=== PATIENT | male | born 1965 | race Caucasian/White ===

== ENCOUNTER 2020-07-26 06:09 | Emergency (ER) | payer MEDICARE, MEDICAID, SELFPAY ==
[2020-07-26 06:39] VITALS: BP 173/105; PULSE 74; RESP 17; TEMP 36.9; O2SAT 98; BMI 28.7
[2020-07-26 06:42] VITALS: PULSE 57
--- NOTE | 2020-07-26 06:50 | ED.NAVMDI ---
HPI - Nausea/Vomiting/Diarrhea General Chief complaint: Nausea/Vomiting/Diarrhea Stated complaint: vomiting/diarrhea Time Seen by Provider: 07/26/20 06:47 History of Present Illness HPI Narrative: This is a 55 years old male who presented to the emergency department with a chief complaint of nausea vomiting , he denies any abdominal pain denies any diarrhea denies any fever. He has history of type 2 diabetes he is off all medication. Denies hx of substance abuse as well MD elicited complaint: nausea and vomiting Onset (ago): day(s) (3) Description of vomiting: watery Associated nausea: Yes Associated abdominal pain: No Location of pain: none Severity: moderate Quality: cramping Exacerbating factors: none Relieving factors: none Related Data Previous Rx's Medication Instructions Recorded metoclopramide HCl 10 mg tablet 5 mg PO Q6H PRN 30 Days #90 tab 07/24/20 metoclopramide HCl [Reglan] 10 mg PO Q6H PRN #15 tab 07/26/20 Allergies Allergy/AdvReac Type Severity Reaction Status Date / Time metformin Allergy Unknown nausea, Verified 07/26/20 07:12 nausea and vomiting Review of Systems Cardiovascular: Cardiovascular: Denies chest pain and Denies lightheadedness Gastrointestinal: Gastrointestinal: Denies abdominal pain, Denies melena, Denies hematochezia, Reports nausea and Reports vomiting Musculoskeletal: Musculoskeletal: Reports no additional musculoskeletal complaints Psychiatric: Psychiatric: Reports no additional psychiatric complaints PMF Past Medical History Attestation statement: The following information was validated with the patient. Medical History Diabetes Social History Social History Alcohol intake: never Smoking Status: Current every day smoker Smoked in Last 30 Days: Yes Use of substances other than those prescribed or required for medical reasons: Yes Substance Use Type: Marijuana Substance Use Frequency: Chronic Longstanding Advance Directives: No Advance Directives Information Provided: No Physical Exam Vital Signs: Vital Signs: Vital Signs Temp Pulse Resp BP Pulse Ox 07/26/20 08:48 56 156/78 H 07/26/20 08:43 53 20 177/80 H 96 07/26/20 07:24 97 07/26/20 06:39 98.5 F 74 17 173/105 H 98 Body Mass Index 28.7 Const: General: cooperative, alert, awake and anxious Orientation/consciousness: oriented to person, oriented to place and oriented to time HENMT: Head: Yes normal to inspection General nose exam: Normal external nose present Face and sinus: Yes normal facial exam Mouth: Normal oral and palatal mucosa present and moist mucous membranes abnormal Eyes: General: appearance normal, both eyes and all related structures Neck: Neck: Yes normal visual inspection, Yes full ROM, Yes no lymphadenopathy and Yes no meningeal signs Chest: Chest palpation & inspection: normal inspection of the chest Resp: Effort & Inspection: normal respiratory effort Cardio: Rate: regular rate GI: Inspection: Yes normal to inspection and Yes other ( laparotomy scar) Palpation (GI): Soft to palpation Skin: General skin exam: no rashes or lesions noted Neuro: General: oriented to person, oriented to place, oriented to time and no meningeal signs MDM - Nausea/Vomiting/Diarrhea Lab Data Result diagrams: 07/26/20 07:10 07/26/20 07:10 Labs: Lab Results 07/26/20 07/26/20 Range/Units 07:10 07:10 WBC 11.9 H (4.8-10.8) X10*3/uL RBC 4.77 (4.60-5.80) X10*6/uL Hgb 13.3 L (14.0-18.0) g/dl Hct 40.3 L (42-52) % MCV 84.5 (80-98) fL MCH 27.9 (27.0-33.0) pg MCHC 33.0 (31.0-36.0) g/dl RDW 12.9 (11.0-16.0) % Plt Count 286 (160-400) X10*3/uL MPV 8.7 L (9.4-12.4) fL Immature Gran % (Auto) 0.6 H (0.0-0.4) % Neut % (Auto) 69.9 (45-73) % Lymph % (Auto) 19.0 L (20-40) % [place] % (Auto) 8.5 (2-11) % Eos % (Auto) 1.6 (0-4) % Baso % (Auto) 0.4 (0-2) % Lymph # (Auto) 2.3 (1.2-4.9) X10*3/uL [place] # (Auto) 1.0 (0.1-1.2) X10*3/uL Eos # (Auto) 0.2 (0.0-0.4) X10*3/uL Baso # (Auto) 0.1 (0.0-0.2) X10*3/uL Abs Immat Gran (auto) 0.07 H (0.00-0.03) X10*3/uL Absolute Neuts (auto) 8.3 (2.0-8.3) X10*3/uL Absolute Nucleated RBC 0.000 (0.0-0.012) X10*3/uL Nucleated RBC % (auto) 0.0 (0.0-0.2) /100WBC Sodium 137 (135-145) mmol/L Potassium 4.1 (3.3-5.1) mmol/l Chloride 103 (96-108) mmol/L Carbon Dioxide 26 (22-29) mmol/L Anion Gap 12 (12-20) BUN 25 H (9-16) mg/dL Creatinine 0.92 (0.5-1.4) mg/dL Estim Creat Clear Calc 91.6 Estimated GFR > 60 Random Glucose 157 H (60-115) mg/dL Calcium 8.8 (8.4-10.2) mg/dL Total Bilirubin 0.4 (0.0-1.0) mg/dL Direct Bilirubin 0.2 (0.0-0.5) mg/dL AST 17 (5-37) U/L ALT 18 (0-40) U/L Alkaline Phosphatase 106 (39-117) U/L Total Protein 6.7 (6.5-8.0) g/dL Albumin 4.2 (3.5-5.0) g/dL Lipase 101 H (8-78) U/L Discharge Plan Discharge Clinical Impression: Vomiting Patient Disposition: Home, Self-Care Instructions: Acute Nausea and Vomiting (ED) Prescriptions: New metoclopramide HCl [Reglan] 10 mg tablet 10 mg PO Q6H PRN (Reason: nausea and vomiting) Qty: 15 RF: 0 Referrals: Physician,Unknown [Primary Care Provider] - 2 days ( please call your primary care physician and arrange a follow-up appointment. Return to the emergency department review worse, fever, abdominal pain) Interventions: ED Discharge Assessment Last Done: 07/26/20 12:34 Discharge Date/Time: 07/26/20 12:35
--- NOTE | 2020-07-26 07:00 | CT_ITS ---
EXAMINATION: CT ABDOMEN AND PELVIS WITHOUT CONTRAST CLINICAL INFORMATION: Abdominal pain. Diverticulitis? COMPARISON: None TECHNIQUE: Multidetector volumetric imaging was performed from the superior aspect of the liver through the pubic symphysis. Sagittal and coronal reformatted images were obtained on the technologist's workstation. This CT examination was performed using dose optimization techniques as appropriate, variously including the following: *Automated exposure control *Adjustment of mA and/or kV according to patient size (this includes techniques or standardized protocols for targeted exams where dose is matched to indication/reason for exam; i.e. extremities or head) *Use of iterative reconstruction technique DLP: 595 mGy-cm FINDINGS: LUNG BASES: Incidentally noted is minimal bronchial wall thickening in the visualized bases, which have slightly mosaic attenuation. No basilar consolidation or pleural effusion. LIVER, GALLBLADDER, AND BILIARY TREE: The liver is normal in size, shape, and attenuation. No focal hepatic lesion or biliary ductal dilatation. The gallbladder contains calcified stones. No gallbladder wall thickening or pericholecystic inflammatory changes. PANCREAS: Unremarkable. SPLEEN: Unremarkable. ADRENAL GLANDS: Unremarkable. KIDNEYS AND URETERS: Kidneys are normal in size. 0.3 cm calyceal stone is present in the posterior interpolar region of the right kidney. The ureters are unremarkable. 2.5 cm cortical cyst of the lower pole of the right kidney has a simple appearance on these noncontrast images. BLADDER: The urinary bladder is underdistended. No bladder calculi. GASTROINTESTINAL TRACT: Stomach is unremarkable. No dilated bowel loops. No evidence of appendicitis. The colonic wall has normal thickness. No bowel wall edema, mesenteric fat stranding or ascites. No pneumoperitoneum. ABDOMINAL WALL: No significant findings. Small amount of fat/lipoma is noted in the right inguinal canal. LYMPH NODES: Normal. VASCULAR: Mild atherosclerosis of the abdominal aorta without aneurysm. PELVIC VISCERA: Prostate gland contains central calcifications. The gland is normal in size. No pelvic mass or free fluid. There are vas deferens calcifications -- a finding that may be observed in patients with history of diabetes. OSSEOUS STRUCTURES: Degenerative disc disease of L1-L2 and L4-L5. IMPRESSION: * No acute findings in the abdomen or pelvis. No evidence of inflammatory change or obstruction along the gastrointestinal tract. * Small, 0.3 cm stone of the right kidney. No hydronephrosis. * Cholelithiasis without evidence of cholecystitis or biliary tract obstruction.
[2020-07-26] MEDS: ondansetron HCL 4 MG/2 ML VIAL IVPUSH (07:14)
[2020-07-26] MEDS: 0.9 % Sodium Chloride 1,000 ML 999 ML IVCONT ×2 (07:14→08:39)
[2020-07-26 07:15] LABS: MANUAL DIFF FLAG NO
[2020-07-26 07:24] VITALS: O2SAT 97
[2020-07-26 07:26] LABS: Basophils Absolute Auto 0.1 X10*3/uL (0.0-0.2); Basophils Percent Auto 0.4 % (0-2); Eosinophils Absolute Auto 0.2 X10*3/uL (0.0-0.4); Eosinophils Percent Auto 1.6 % (0-4); Hematocrit 40.3 % (42-52); Hemoglobin 13.3 g/dl (14.0-18.0); Imm Gran Abs Auto 0.07 X10*3/uL (0.00-0.03); Imm Gran Pct Auto 0.6 % (0.0-0.4); Lymphocytes Absolute Auto 2.3 X10*3/uL (1.2-4.9); Mean Corpuscular Hemoglobin 27.9 pg (27.0-33.0); Mean Corpuscular Volume 84.5 fL (80-98); Mean Platelet Volume 8.7 fL (9.4-12.4); Monocytes Percent Auto 8.5 % (2-11); Neutrophils Absolute Auto 8.3 X10*3/uL (2.0-8.3); Neutrophils Percent Auto 69.9 % (45-73); Platelet Count 286 X10*3/uL (160-400); Red Blood Count 4.77 X10*6/uL (4.60-5.80); Red Cell Distribution Width 12.9 % (11.0-16.0); White Blood Count 11.9 X10*3/uL (4.8-10.8)
--- NOTE | 2020-07-26 07:26 | PC.NURSE ---
RECEIVED REPORT FROM BUBBA AMARAL. PT ALERT AND VERBAL. SKIN PALE, CLAMMY, WARM. RESPIRATIONS EVEN AND NON LABORED. REPORTS NAUSEA. DENIES ANY PAIN OR OTHER DISCOMFORT. REPORTS HE HAS HAD MULTIPLE EPISODES OF VOMITING SIMILAR TO THIS IN THE PAST, BRIEFLY RELIEVED BY HOT SHOWERS. SMOKES MARIJUANA, BUT STATES I'M TRYING TO QUIT. LAST SMOKED YESTERDAY. IV ACCESS OBTAINED. LABS SENT. NS INFUSING AND ZOFRAN GIVEN PER DEC.
[2020-07-26 07:49] LABS: Alanine Aminotransferase 18 U/L (0-40); Albumin Level 4.2 g/dL (3.5-5.0); Alkaline Phosphatase 106 U/L (39-117); Anion Gap 12 (12-20); Aspartate Amino Transferase 17 U/L (5-37); Bilirubin Direct 0.2 mg/dL (0.0-0.5); Bilirubin Total 0.4 mg/dL (0.0-1.0); Blood Urea Nitrogen 25 mg/dL (9-16); Calcium 8.8 mg/dL (8.4-10.2); Carbon Dioxide 26 mmol/L (22-29); Chloride 103 mmol/L (96-108); Creatinine Clr Calc Pharmacy 91.6; Estimated Glomerular Filt Rate > 60; Glucose Random 157 mg/dL (60-115); Potassium 4.1 mmol/l (3.3-5.1); Sodium 137 mmol/L (135-145); Total Protein 6.7 g/dL (6.5-8.0)
[2020-07-26 08:04] LABS: Lipase 101 U/L (8-78)
--- NOTE | 2020-07-26 08:15 | XR_ITS ---
EXAMINATION: XR CHEST CLINICAL INFORMATION: Cough. COMPARISON: CXR from 11/25/2017 TECHNIQUE: Frontal view of the chest was obtained. FINDINGS: Trachea is midline in position. Lungs are well expanded and clear. No evidence of consolidation or pleural effusion. Cardiomediastinal silhouette has normal size and contour. The visualized bones and upper abdomen are unremarkable. IMPRESSION: No evidence of pneumonia. No acute cardiopulmonary findings compared to the prior chest radiograph from 11/25/2017.
[2020-07-26] MEDS: Metoclopramide HCl 10 MG/2 ML VIAL IVPUSH (08:31)
[2020-07-26 08:43] VITALS: BP 177/80; PULSE 53; RESP 20; O2SAT 96
--- NOTE | 2020-07-26 08:45 | PC.NURSE ---
PT REMAINS NAUSEOUS AFTER ZOFRAN. VOMITED APPROX 100 ML CLEAR EMESIS. MEDICATED WITH ATIVAN AND REGLAN PER DEC. PT ALSO NOW REPORTS FEELING SOB. SPO2 96% ON RA. RESPIRATIONS NON LABORED, BUT COURSE I/E WHEEZES PRESENT BILATERALLY THROUGHOUT. RECEIVING ALBUTEROL UPDRAFT. AWAITING RESULTS OF CHEST XRAY.
[2020-07-26 08:48] VITALS: BP 156/78; PULSE 56
[2020-07-26] MEDS: LORazepam 2 MG/ML VIAL 0.5 MG IVPUSH (09:00)
--- NOTE | 2020-07-26 11:36 | PC.NURSE ---
pt denies nausea and sob at this time. sitting up, drinking gingerale; tolerating well.
== END 2020-07-26 12:35 | disposition home or self-care (01) ==
PROVIDERS: Emergency Provider Emergency Medicine
DX: R11.2 Nausea with vomiting, unspecified (principal); E11.9 Type 2 diabetes mellitus without complications; F17.200 Nicotine dependence, unspecified, uncomplicated; F12.90 Cannabis use, unspecified, uncomplicated
CPT/HCPCS: 36415; 71045; 74176; 80048; 80076; 83690; 85025; 96361; 96374; 96375; 99285; J2060; J2405; J2765

== ENCOUNTER 2020-07-29 08:24 | Emergency (ER) | payer MEDICARE, MEDICAID, SELFPAY ==
[2020-07-29 08:57] VITALS: BP 168/80; PULSE 55; RESP 16; TEMP 37; O2SAT 97; BMI 28.8
--- NOTE | 2020-07-29 09:01 | ED.NAVMDI ---
HPI - Nausea/Vomiting/Diarrhea General Chief complaint: Nausea/Vomiting/Diarrhea Stated complaint: NAUSEA, VOMITING Time Seen by Provider: 07/29/20 09:01 Source: patient Mode of arrival: ambulatory Limitations: no limitations History of Present Illness MD elicited complaint: nausea, vomiting and diarrhea Onset (ago): day(s) (7) Description of vomiting: food contents Description of diarrhea: semi-solid Associated nausea: Yes Associated abdominal pain: No Location of pain: none Exacerbating factors: eating Relieving factors: none Context: other (DENIES) Associated symptoms: myalgias, cough, fever/chills, loss of appetite, malaise and nausea/vomiting Related Data Previous Rx's Medication Instructions Recorded metoclopramide HCl 10 mg tablet 5 mg PO Q6H PRN 30 Days #90 tab 07/24/20 metoclopramide HCl [Reglan] 10 mg PO Q6H PRN #15 tab 07/26/20 ondansetron 4 mg PO Q8H PRN #20 tab 07/29/20 Allergies Allergy/AdvReac Type Severity Reaction Status Date / Time metformin Allergy Unknown nausea, Verified 07/26/20 07:12 nausea and vomiting Review of Systems Review of Systems: Constitutional : No Weight loss, No Fever, positive Chills ENT/Mouth : No sore throat, No Rhinorrhea Eyes: No Swelling, No Redness Cardiovascular : No Chest Pain, No SOB, NoEdema Respiratory : No Cough, No Sputum, No Wheezing Gastrointestinal : Positive Nausea, Positive Vomiting, positive Diarrhea, no abdominal Pain, No Hematochezia, No Melena Genitourinary : No Dysuria, No Urinary Frequency, No Hematuria, No Urgency Musculoskeletal : No joint pain, No Myalgias, No Joint Swelling Skin : No Skin Lesions, No rash Neuro : No Weakness, No Numbness, No Dizziness, No Headache Psych : No Anxiety/Panic, No Depression Heme/Lymph: No Bruising, No Lymphadenopathy Endocrine : No Polyuria, No Polydipsia All other systems reviewed and are negative. Gastrointestinal: Gastrointestinal: Reports nausea PMFSH Past Medical History Medical History Diabetes Social History Social History Alcohol intake: never Smoking Status: Current every day smoker Substance Use Type: Marijuana Advance Directives: No Advance Directives Information Provided: No Physical Exam Vital Signs: Vital Signs: Vital Signs Temp Pulse Resp BP Pulse Ox 07/29/20 08:57 98.6 F 55 16 168/80 H 97 Body Mass Index 28.8 Appearance: Alert. Oriented X3. No acute distress. Eyes: Pupils equal, round and reactive to light. ENT: Pharynx normal. Neck: Normal inspection. Neck supple. CVS: Normal heart rate and rhythm. Pulses normal. Respiratory: No respiratory distress. Breath sounds normal. Abdomen: Soft and nontender. Skin: Skin warm and dry. Normal skin color. Normal skin turgor. Extremities: No lower extremity edema. No calf ttp Neuro: Oriented X 3. No motor deficit. No sensory deficit. Course Course Course Narrative: up and walking steady gait, tolerating PO, repeat labs stable can be managed as outpatient MDM - Nausea/Vomiting/Diarrhea MDM Narrative Medical decision making narrative: 55 yo male with hx of DM2 - off medications recently seen on 07/26 for same with negative CXR, negative CT scan c/o n/v/d had one bout of straining this AM and saw a streak of blood, here today c/o nausea and also wanting COVID test, he is not toxic, will repeat labs, send off COVID test, PO challenge doubt colitis/pneumonia given recent workup Lab Data Result diagrams: 07/29/20 09:27 07/29/20 09:27 Labs: Lab Results 07/29/20 07/29/20 07/29/20 Range/Units 01:23 09:01 09:27 WBC 9.7 (4.8-10.8) X10*3/uL RBC 4.66 (4.60-5.80) X10*6/uL Hgb 13.0 L (14.0-18.0) g/dl Hct 39.4 L (42-52) % MCV 84.5 (80-98) fL MCH 27.9 (27.0-33.0) pg MCHC 33.0 (31.0-36.0) g/dl RDW 12.9 (11.0-16.0) % Plt Count 277 (160-400) X10*3/uL MPV 8.7 L (9.4-12.4) fL Immature Gran % (Auto) 0.5 H (0.0-0.4) % Neut % (Auto) 80.5 H (45-73) % Lymph % (Auto) 12.4 L (20-40) % [place] % (Auto) 5.9 (2-11) % Eos % (Auto) 0.3 (0-4) % Baso % (Auto) 0.4 (0-2) % Lymph # (Auto) 1.2 (1.2-4.9) X10*3/uL [place] # (Auto) 0.6 (0.1-1.2) X10*3/uL Eos # (Auto) 0.0 (0.0-0.4) X10*3/uL Baso # (Auto) 0.0 (0.0-0.2) X10*3/uL Abs Immat Gran (auto) 0.05 H (0.00-0.03) X10*3/uL Absolute Neuts (auto) 7.8 (2.0-8.3) X10*3/uL Absolute Nucleated RBC 0.000 (0.0-0.012) X10*3/uL Nucleated RBC % (auto) 0.0 (0.0-0.2) /100WBC Hold Blue Top VBG pH (7.32-7.43) VBG pCO2 mmhg VBG Oxygen Liters/Min VBG pO2 mmhg VBG HCO3 mmol/L VBG O2 Saturation % VBG Base Excess mmol/L Sodium (135-145) mmol/L Potassium (3.3-5.1) mmol/l Chloride (96-108) mmol/L Carbon Dioxide (22-29) mmol/L Anion Gap (12-20) BUN (9-16) mg/dL Creatinine (0.5-1.4) mg/dL Estim Creat Clear Calc Estimated GFR POC Glucose 160 H (60-115) mg/dL Random Glucose (60-115) mg/dL Lactic Acid 1.0 (0.5-2.0) mmol/L Calcium (8.4-10.2) mg/dL Magnesium (1.6-2.6) mg/dL Total Bilirubin (0.0-1.0) mg/dL Direct Bilirubin (0.0-0.5) mg/dL AST (5-37) U/L ALT (0-40) U/L Alkaline Phosphatase (39-117) U/L Total Protein (6.5-8.0) g/dL Albumin (3.5-5.0) g/dL Lipase (8-78) U/L 07/29/20 07/29/20 07/29/20 Range/Units 09:27 09:27 09:27 WBC (4.8-10.8) X10*3/uL RBC (4.60-5.80) X10*6/uL Hgb (14.0-18.0) g/dl Hct (42-52) % MCV (80-98) fL MCH (27.0-33.0) pg MCHC (31.0-36.0) g/dl RDW (11.0-16.0) % Plt Count (160-400) X10*3/uL MPV (9.4-12.4) fL Immature Gran % (Auto) (0.0-0.4) % Neut % (Auto) (45-73) % Lymph % (Auto) (20-40) % [place] % (Auto) (2-11) % Eos % (Auto) (0-4) % Baso % (Auto) (0-2) % Lymph # (Auto) (1.2-4.9) X10*3/uL [place] # (Auto) (0.1-1.2) X10*3/uL Eos # (Auto) (0.0-0.4) X10*3/uL Baso # (Auto) (0.0-0.2) X10*3/uL Abs Immat Gran (auto) (0.00-0.03) X10*3/uL Absolute Neuts (auto) (2.0-8.3) X10*3/uL Absolute Nucleated RBC (0.0-0.012) X10*3/uL Nucleated RBC % (auto) (0.0-0.2) /100WBC Hold Blue Top SEE NOTE VBG pH 7.32 (7.32-7.43) VBG pCO2 55 mmhg VBG Oxygen Liters/Min TNP VBG pO2 32 mmhg VBG HCO3 28 mmol/L VBG O2 Saturation 60.2 % VBG Base Excess 0.7 mmol/L Sodium 138 (135-145) mmol/L Potassium 4.6 (3.3-5.1) mmol/l Chloride 102 (96-108) mmol/L Carbon Dioxide 28 (22-29) mmol/L Anion Gap 13 (12-20) BUN 23 H (9-16) mg/dL Creatinine 0.89 (0.5-1.4) mg/dL Estim Creat Clear Calc 94.8 Estimated GFR > 60 POC Glucose (60-115) mg/dL Random Glucose 167 H (60-115) mg/dL Lactic Acid (0.5-2.0) mmol/L Calcium 8.7 (8.4-10.2) mg/dL Magnesium 1.9 (1.6-2.6) mg/dL Total Bilirubin 0.8 (0.0-1.0) mg/dL Direct Bilirubin 0.2 (0.0-0.5) mg/dL AST 17 (5-37) U/L ALT 16 (0-40) U/L Alkaline Phosphatase 101 (39-117) U/L Total Protein 6.8 (6.5-8.0) g/dL Albumin 4.2 (3.5-5.0) g/dL Lipase 20 (8-78) U/L ECG Data Attestation: I personally reviewed and interpreted this ECG as follows: ECG interpretation date: 07/29/20 ECG interpretation time: 09:24 Interpretation: Rate: 53 Rhythm: sinus bradycardia [place]: normal Normal P waves. Normal DAMARI. Normal QRS complex. ST T wave : normal qTC: normal prior studies: no acute ischemia The study has been interpreted contemporaneously by me. . Discharge Plan Discharge Clinical Impression: Acute viral syndrome Vomiting Qualifiers: Vomiting type: unspecified Vomiting Intractability: non-intractable Nausea presence: with nausea Qualified Code(s): R11.2 - Nausea with vomiting, unspecified Patient Disposition: Home, Self-Care Instructions: Viral Syndrome (ED), Acute Nausea and Vomiting (ED) Additional Instructions: you were tested for COVID we will call you with results in 2 to 4 days, wear a mask, socially distance Prescriptions: New ondansetron 4 mg tablet,disintegrating 4 mg PO Q8H PRN (Reason: nausea and vomiting) Qty: 20 RF: 0 No Action metoclopramide HCl [Reglan] 10 mg tablet 10 mg PO Q6H PRN (Reason: nausea and vomiting) Qty: 15 RF: 0 Referrals: Physician,Unknown [Primary Care Provider] - 2 days (please follow up with primary care doctor) Stand Alone Forms: Work/School Release
--- NOTE | 2020-07-29 09:03 | ECG_ITS ---
Test Reason : NAUSIA VOMITING Blood Pressure : / mmHG Vent. Rate : 053 BPM Atrial Rate : 053 BPM P-R Int : 142 ms QRS Dur : 072 ms QT Int : 410 ms P-R-T Axes : 062 060 060 degrees QTc Int : 384 ms Sinus bradycardia Otherwise normal ECG No previous ECGs available Referred By: Kimi Oliver Electronically Signed By:GASTON PHILLIP MD
[2020-07-29 09:08] LABS: Glucose, Whole Blood 160 mg/dL (60-115)
[2020-07-29] MEDS: 0.9 % Sodium Chloride 1,000 ML 999 ML IVCONT (09:33)
[2020-07-29] MEDS: ondansetron HCL 4 MG/2 ML VIAL IVPUSH (09:34)
[2020-07-29 09:36] LABS: MANUAL DIFF FLAG NO
[2020-07-29 09:37] LABS: Basophils Percent Auto 0.4 % (0-2); Eosinophils Percent Auto 0.3 % (0-4); Hematocrit 39.4 % (42-52); Imm Gran Abs Auto 0.05 X10*3/uL (0.00-0.03); Imm Gran Pct Auto 0.5 % (0.0-0.4); Lymphocytes Absolute Auto 1.2 X10*3/uL (1.2-4.9); Lymphocytes Percent Auto 12.4 % (20-40); Mean Corpuscular Hemoglobin 27.9 pg (27.0-33.0); Mean Corpuscular Volume 84.5 fL (80-98); Mean Platelet Volume 8.7 fL (9.4-12.4); Monocytes Absolute Auto 0.6 X10*3/uL (0.1-1.2); Monocytes Percent Auto 5.9 % (2-11); Neutrophils Absolute Auto 7.8 X10*3/uL (2.0-8.3); Neutrophils Percent Auto 80.5 % (45-73); Platelet Count 277 X10*3/uL (160-400); Red Blood Count 4.66 X10*6/uL (4.60-5.80); Red Cell Distribution Width 12.9 % (11.0-16.0); White Blood Count 9.7 X10*3/uL (4.8-10.8)
[2020-07-29 09:48] LABS: Base Excess VBG 0.7 mmol/L; HCO3 VBG 28 mmol/L; PCO2 VBG 55 mmhg; PO2 VBG 32 mmhg; pH VBG 7.32 (7.32-7.43)
[2020-07-29 09:49] LABS: Oxygen Saturation VBG 60.2 %
[2020-07-29 10:12] LABS: Alanine Aminotransferase 16 U/L (0-40); Albumin Level 4.2 g/dL (3.5-5.0); Alkaline Phosphatase 101 U/L (39-117); Anion Gap 13 (12-20); Aspartate Amino Transferase 17 U/L (5-37); Bilirubin Direct 0.2 mg/dL (0.0-0.5); Bilirubin Total 0.8 mg/dL (0.0-1.0); Blood Urea Nitrogen 23 mg/dL (9-16); Calcium 8.7 mg/dL (8.4-10.2); Carbon Dioxide 28 mmol/L (22-29); Chloride 102 mmol/L (96-108); Creatinine Clr Calc Pharmacy 94.8; Estimated Glomerular Filt Rate > 60; Glucose Random 167 mg/dL (60-115); Lipase 20 U/L (8-78); Magnesium 1.9 mg/dL (1.6-2.6); Potassium 4.6 mmol/l (3.3-5.1); Sodium 138 mmol/L (135-145); Total Protein 6.8 g/dL (6.5-8.0)
[2020-07-29 10:47] LABS: Acetone, serum QL Negative (Negative)
[2020-07-29 11:08] VITALS: BP 112/54; PULSE 67; O2SAT 98
--- NOTE | 2020-07-29 11:09 | PC.NURSE ---
CLEARED FOR DC BY PROVIDER
== END 2020-07-29 11:18 | disposition home or self-care (01) ==
PROVIDERS: Emergency Provider Emergency Medicine
DX: B34.9 Viral infection, unspecified (principal); M79.10 Myalgia, unspecified site; F12.90 Cannabis use, unspecified, uncomplicated; F17.200 Nicotine dependence, unspecified, uncomplicated; Z71.6 Tobacco abuse counseling; Z79.899 Other long term (current) drug therapy; Z20.828 Contact with and (suspected) exposure to other viral communicable diseases
CPT/HCPCS: 36415; 80048; 80076; 82009; 82803; 82947; 83605; 83690; 83735; 85025; 87635; 93005; 96361; 96374; 99283; 99284; J2405

== ENCOUNTER 2020-12-31 09:13 | Emergency (ER) | payer MEDICARE, MEDICAID, SELFPAY ==
[2020-12-31 10:10] VITALS: BP 156/89; PULSE 50; RESP 16; TEMP 36.1; O2SAT 97; BMI 29.0
[2020-12-31 10:35] VITALS: BP 159/57; PULSE 56; RESP 18; TEMP 37.4; O2SAT 100
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
[2020-12-31 11:41] LABS: MANUAL DIFF FLAG NO
[2020-12-31] MEDS: ondansetron HCL 4 MG/2 ML VIAL IVPUSH (11:41)
[2020-12-31] MEDS: Ketorolac Tromethamine 30 MG/ML VIAL IVPUSH (11:41)
[2020-12-31] MEDS: 0.9 % Sodium Chloride 1,000 ML 999 ML IV (11:42)
--- NOTE | 2020-12-31 11:44 | PC.NURSE ---
iv inserted, labs drawn, pt medicated per order, will continue to monitor.
[2020-12-31 11:47] LABS: Basophils Percent Auto 0.2 % (0-2); Eosinophils Percent Auto 0.2 % (0-4); Hematocrit 39.7 % (42-52); Hemoglobin 13.1 g/dl (14.0-18.0); Imm Gran Abs Auto 0.06 X10*3/uL (0.00-0.03); Imm Gran Pct Auto 0.5 % (0.0-0.4); Lymphocytes Absolute Auto 0.9 X10*3/uL (1.2-4.9); Lymphocytes Percent Auto 7.6 % (20-40); Mean Corpuscular Hemoglobin 28.1 pg (27.0-33.0); Mean Corpuscular Volume 85.2 fL (80-98); Monocytes Absolute Auto 0.4 X10*3/uL (0.1-1.2); Monocytes Percent Auto 3.7 % (2-11); Neutrophils Absolute Auto 10.6 X10*3/uL (2.0-8.3); Neutrophils Percent Auto 87.8 % (45-73); Platelet Count 266 X10*3/uL (160-400); Red Blood Count 4.66 X10*6/uL (4.60-5.80); Red Cell Distribution Width 13.2 % (11.0-16.0); White Blood Count 12.1 X10*3/uL (4.8-10.8)
[2020-12-31 12:01] LABS: COVID-19 Test Negative (Negative)
[2020-12-31 12:43] LABS: Alanine Aminotransferase 18 U/L (0-40); Albumin Level 4.5 g/dL (3.5-5.0); Alkaline Phosphatase 104 U/L (39-117); Anion Gap 14 (12-20); Aspartate Amino Transferase 20 U/L (5-37); Bilirubin Total 0.9 mg/dL (0.0-1.0); Blood Urea Nitrogen 22 mg/dL (9-16); Calcium 9.3 mg/dL (8.4-10.2); Carbon Dioxide 26 mmol/L (22-29); Chloride 104 mmol/L (96-108); Creatinine Clr Calc Pharmacy 97.3; Estimated Glomerular Filt Rate > 60; Glucose Random 164 mg/dL (60-115); Sodium 139 mmol/L (135-145); Total Protein 7.4 g/dL (6.5-8.0)
[2020-12-31 12:57] VITALS: BP 152/56; PULSE 54; RESP 18; TEMP 36.9; O2SAT 98
[2020-12-31 12:58] LABS: Lipase 180 U/L (8-78)
== END 2020-12-31 13:03 | disposition home or self-care (01) ==
PROVIDERS: Emergency Provider Emergency Medicine Emergency Medical Services
DX: R11.15 Cyclical vomiting syndrome unrelated to migraine (principal); E86.0 Dehydration; R10.84 Generalized abdominal pain; Z20.822 Contact with and (suspected) exposure to COVID-19; R19.7 Diarrhea, unspecified; E11.9 Type 2 diabetes mellitus without complications; F12.90 Cannabis use, unspecified, uncomplicated; Z79.899 Other long term (current) drug therapy
CPT/HCPCS: 36415; 80053; 83690; 85025; 87635; 96361; 96374; 96375; 99284; J1885; J2405

== ENCOUNTER 2021-01-20 08:36 | Outpatient (REF) | payer MEDICARE, MEDICAID, SELFPAY ==
--- NOTE | ~2021-01-20 | US_ITS ---
EXAMINATION: US ABDOMEN COMPLETE CLINICAL INFORMATION: Unspecified abdominal pain. COMPARISON: CT abdomen pelvis 07/26/2020. TECHNIQUE: Real-time imaging of the abdominal viscera. FINDINGS: PANCREAS: The visualized head and body of the pancreas appears unremarkable. Remainder of the pancreas is obscured by bowel gas. ABDOMINAL AORTA: The proximal, mid, and distal segments are normal in caliber. INFERIOR VENA CAVA: Visualized portions are normal. LIVER: There is coarsening and heterogeneity of the echotexture. Diffuse increase echogenicity. The liver is normal in size. Mildly dilated intrahepatic biliary ducts. No focal lesion. GALLBLADDER: Gallstones present. Mild wall measuring 4 mm. Gallbladder is partially distended. No tenderness in the area of the gallbladder. COMMON BILE DUCT: Normal in caliber measuring 0.25 cm in diameter. RIGHT KIDNEY: Lower pole 2.5 cm cyst. Midpole 5 mm and 3 mm nonobstructing calculus. No hydronephrosis. The kidney measures 12.0 cm in maximum dimension. LEFT KIDNEY: Normal. No hydronephrosis. No renal calculi or focal parenchymal lesions. The kidney measures 13.8 cm in maximum dimension. SPLEEN: Normal. The spleen measures 10.8 cm in maximum dimension. FREE FLUID: None. US/US abdomen complete IMPRESSION: 1. Mild diffuse increased echogenicity, coarsened heterogeneous echotexture. This could be related to fatty infiltration or hepatocellular disease. Please correlate clinically. No focal hepatic mass. 2. Mild nonspecific intrahepatic biliary duct dilatation. 3.Cholelithiasis without sonographic findings to suggest acute cholecystitis. 4. Right renal 2.5 cm cyst. There are 2 small nonobstructing calculi. No hydronephrosis.
== END 2021-01-20 08:37 | disposition home or self-care (01) ==
LOC: HO.US 08:36
PROVIDERS: Visit Provider Internal Medicine
DX: R10.9 Unspecified abdominal pain (principal)
CPT/HCPCS: 76700

== ENCOUNTER 2023-04-13 01:02 | Emergency (ER) | payer MEDICARE, MEDICAID, SELFPAY ==
[2023-04-13 01:14] VITALS: BP 127/77; BP 147/70; PULSE 74; RESP 16; TEMP 37; O2SAT 94; O2SAT 96; BMI 25.7
[2023-04-13 01:19] VITALS: BP 127/77; PULSE 78; RESP 18; TEMP 37
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
[2023-04-13 02:00] VITALS: BP 120/70; PULSE 85; RESP 18; TEMP 37; O2SAT 98
[2023-04-13] MEDS: HaloperidoL 5 MG TABLET 10 MG PO (02:11)
[2023-04-13] MEDS: LORazepam 1 MG TABLET 2 MG PO (02:11)
[2023-04-13 02:41] LABS: MANUAL DIFF FLAG NO
[2023-04-13 02:43] LABS: Basophils Percent Auto 0.4 % (0-2); Eosinophils Absolute Auto 0.1 X10*3/uL (0.0-0.4); Eosinophils Percent Auto 1.7 % (0-4); Hematocrit 40.9 % (42.0-52.0); Hemoglobin 13.8 g/dl (14.0-18.0); Imm Gran Abs Auto 0.03 X10*3/uL (0.00-0.03); Imm Gran Pct Auto 0.4 % (0.0-0.4); Lymphocytes Absolute Auto 2.5 X10*3/uL (1.2-4.9); Lymphocytes Percent Auto 29.9 % (20-40); Mean Corpuscular HGB Conc 33.7 g/dl (31.0-36.0); Mean Corpuscular Hemoglobin 28.3 pg (27.0-33.0); Mean Platelet Volume 8.3 fL (9.4-12.4); Monocytes Absolute Auto 0.9 X10*3/uL (0.1-1.2); Monocytes Percent Auto 10.6 % (2-11); Neutrophils Absolute Auto 4.7 x10*3/uL (2.0-8.3); Platelet Count 251 X10*3/uL (160-400); Red Blood Count 4.87 X10*6/uL (4.60-5.80); Red Cell Distribution Width 13.2 % (11.0-16.0); White Blood Count 8.2 X10*3/uL (4.8-10.8)
[2023-04-13 02:57] LABS: COVID-19 Test Negative (Negative); IDNOW Serial# 08D9AD1C
[2023-04-13 03:02] LABS: Alanine Aminotransferase 23 U/L (0-40); Alkaline Phosphatase 111 U/L (39-117); Anion Gap 19 (12-20); Aspartate Amino Transferase 40 U/L (5-37); Bilirubin Total 0.6 mg/dL (0.0-1.0); Blood Urea Nitrogen 23 mg/dL (9-16); Calcium 9.4 mg/dL (8.4-10.2); Carbon Dioxide 20 mmol/L (22-29); Chloride 102 mmol/L (96-108); Creatinine Clr Calc Pharmacy 82.9; Estimated Glomerular Filt Rate > 60; Ethanol 171 mg/dL; Glucose Random 168 mg/dL (60-115); Potassium 3.8 mmol/L (3.3-5.1); Sodium 137 mmol/L (135-145); Total Protein 7.5 g/dL (6.5-8.0)
[2023-04-13 04:55] VITALS: BP 100/47; PULSE 72; RESP 16; TEMP 37; O2SAT 94
--- NOTE | 2023-04-13 05:14 | MHC.EDTECH ---
Vitals done and Pt requested a sandwich, which was provided to him. No other needs at this time.
[2023-04-13 07:03] VITALS: BP 104/61; PULSE 64; RESP 16; TEMP 37.3; O2SAT 95
[2023-04-13 07:47] LABS: Amphetamine Screen Urine Not Detected (Not Detect); Barbiturates, Urine Not Detected (Not Detect); Benzodiazepines Screen Urine Not Detected (Not Detect); Cannabinoid Screen Urine POSITIVE (Not Detect); Cocaine Screen Urine POSITIVE (Not Detect); Fentanyl, urine Not Detected (Not Detect); Opiate Screen Urine Not Detected (Not Detect); Phencyclidine Screen Urine Not Detected (Not Detect)
--- NOTE | 2023-04-13 08:27 | PC.NURSE ---
PT ASSISTED TO SIT AT THE EDGE OF THE BED. PO FLUIDS PROVIDED. HOME CARE NURSE AT THE BEDSIDE FOR ASSESSMENT , AWAITING DISPOSITION
--- NOTE | 2023-04-13 08:56 | PC.NURSE ---
pt cleared for discharge by care team, will d/c when patient more awake and alert.
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
== END 2023-04-13 11:40 | disposition home or self-care (01) ==
PROVIDERS: Emergency Provider Emergency Medicine Emergency Medical Services
DX: F10.129 Alcohol abuse with intoxication, unspecified (principal); F14.10 Cocaine abuse, uncomplicated; R07.81 Pleurodynia; R73.9 Hyperglycemia, unspecified; Y90.6 Blood alcohol level of 120-199 mg/100 ml; Z20.822 Contact with and (suspected) exposure to COVID-19; Z20.828 Contact with and (suspected) exposure to other viral communicable diseases; Z79.899 Other long term (current) drug therapy
CPT/HCPCS: 80053; 80307; 85025; 87635; 99285

== ENCOUNTER 2023-09-12 13:42 | Outpatient (AMB) | payer MEDICARE, MEDICAID, SELFPAY ==
[2023-09-12 13:44] VITALS: BP 92/60; PULSE 50; O2SAT 99; BMI 30.1
--- NOTE | 2023-09-12 13:44 | MHC.PC.OV ---
Vital Signs 09/12/23 13:44 Height 5 ft 3 in Weight 170 lb BMI 30.1 BP 92/60 Blood Pressure Location Lt brachial Position Sitting Pulse 50 Pulse Source Pulse Oximeter Pulse Oximetry (%) 99 Oxygen Delivery Method Room Air Intake Visit Reasons: PE Ledger Poster Required: No Capital Project Engineer: Not Required per policy Accompanied by: Self / Same As Patient Allergies metformin Allergy (Unknown, Verified 09/12/23 13:44) nausea, nausea and vomiting Medication List - Last Reconciled 09/13/23 by Massimo Briggs MD blood sugar diagnostic FREESTYLE LANCETS-- USE TO TEST 3 TIMES DAILY blood sugar diagnostic (FreeStyle Lite Strips) TEST 3 TIMES DAILY metoclopramide HCl (Reglan) 10 mg PO Q6H PRN metoclopramide HCl 5 mg (1/2 x 10 mg) PO Q6H PRN 30 days ondansetron 4 mg PO Q8H PRN prochlorperazine maleate (Compazine) 10 mg PO Q6H PRN Tobacco use date assessed: 09/12/23 Dental Screening Dental Screen Date: 09/12/23 Did you have a dental visit in the last 12 months?: No Did you have a dental problem in the last 6 months where you did not have access to dental care?: No Was dental information given to patient?: Patient has dentist HPI PE HPI Details not on any meds [facility] Medical History Diabetes 1.5, managed as type 2 Nausea Diabetes Surgical History History of laparotomy Family History Father Pancreatic cancer Mother Diabetes Diverticulitis Social History Housing: Apartment Alcohol intake: current Alcohol intake frequency: 3 or more drinks per day Alcohol type: beer Patient Tobacco Use Status: Current everyday Tobacco user Tobacco use type: Cigarette Cigarettes Per Day: 10 e-Cigarette/Vaping Use: Never Used Second Hand Smoke Exposure: No Substance Use Type: Crack/Cocaine service: No Current occupational status: disabled Cognitive needs: No Hearing needs: No Vision needs: No Questionnaire PHQ-9 Over the last 2 weeks, how often have you been bothered by any of the following problems? 1. Little interest or pleasure in doing things: not at all 2. Feeling down, depressed, or hopeless: not at all 3. Trouble falling or staying asleep, or sleeping too much: not at all 4. Feeling tired or having little energy: not at all 5. Poor appetite or overeating: not at all 6. Feeling bad about yourself - or that you are a failure or have let yourself or your family down: not at all 7. Trouble concentrating on things, such as reading the newspaper or watching television: not at all 8. Moving or speaking so slowly that other people could have noticed. Or the opposite - being so fidgety or restless that you have been moving around a lot more than usual: not at all 9. Thoughts that you would be better off or of hurting yourself in some way: not at all Total score: 0 Depression Screening Interpretation: Negative Depression Screening Done: Yes 63300 - PHQ-9 Billing: Yes Source: Developed by Drs. Dhaval Martin, Chloé Baumann, Arley Viera and colleagues, with an educational domingo from [employer]. Thrive Questionnaire Date Thrive assessed: 09/12/23 I am a: Patient What is your living situation today?: I have a steady place to live Within the past 12 months, did the food you bought not last and you didn't have the money to get more?: Never true Within the past 12 months, did you worry whether your food would run out before you got money to buy more?: Never true Do you have trouble paying for medicines?: No Do you have trouble getting transportation to medical appointments?: No Do you have trouble paying your heating and electricity bill?: No Do you have trouble taking care of your child, family member or friend?: No Do you have trouble with day-to-day activities such as bathing, preparing meals, shopping, managing finances, etc.?: No Are you currently unemployed and looking for a job?: No Are you interested in more education?: No Please select the resources that you would like help with: None AUDIT C Alcohol Use Questionnaire (AUDIT-C) 1. How often do you have a drink containing alcohol?: Never (0) Total Score: 0 Score Reviewed/Action Taken: Yes BRIAN-7 AMB Questionnaire BRIAN-7 Date BRIAN - 7 assessed: 09/12/23 Feeling nervous, anxious, or on edge: 0 = Not at all Not being able to stop or control worryin = Not at all Worrying too much about different things: 0 = Not at all Trouble relaxin = Not at all Being so restless that it is hard to sit still: 0 = Not at all Becoming easily annoyed or irritable: 0 = Not at all Feeling afraid as if something awful might happen: 0 = Not at all Total BRIAN-7 score (0-4 normal; 5-9 mild; 10-14 moderate; 15-21 severe): 0 Source: Developed by Drs. Dhaval Martin, Chloé Baumann, Arley Viera and colleagues, with an educational domingo from [employer]. BRIAN-7 Assessment Billing BRIAN-7 Assessment Tool: BRIAN-7 Assessment 73129 Review of Systems Const Denies chills, Denies fatigue, Denies headache(s) and Denies weight loss Eyes Denies change in vision, Denies diplopia and Denies eye pain ENT Denies vertigo, Denies dizziness, Denies headache(s) and Denies nasal discharge Card Denies chest pain, Denies rapid heart rate and Denies dyspnea on exertion Resp Denies chest congestion, Denies cough, Denies pain with cough and Denies dyspnea on exertion GI Denies abdominal pain, Denies hematochezia and Denies change in bowel habits Musc Denies myalgias, Denies arthralgias and Denies joint swelling Skin/Breast Denies lesions and Denies unusual bruising Neuro Denies vertigo, Denies dizziness, Denies headache(s) and Denies focal weakness Endo Denies fatigue Physical exam (Primary Care) Vital Signs: Last Vital Signs Pulse 50 09/12/23 13:44 BP 92/60 09/12/23 13:44 Pulse Ox 99 09/12/23 13:44 Oxygen Delivery Method Room Air 09/12/23 13:44 BMI result Body Mass Index 30.1 Tobacco/Smoking Status: Tobacco use Status Tobacco use date assessed 09/12/23 09/12/23 13:50 Patient Tobacco Use Status Current everyday Tobacco 09/12/23 13:50 Tobacco use type Cigarette 09/12/23 13:50 e-Cigarette/Vaping Use Never Used 09/12/23 13:50 PHQ-9: PHQ-9 Score PHQ-9: Total score 0 09/12/23 13:50 Depression Screening Interpretation: Negative Thrive Assessment: Date of Thrive Assessment Date Thrive assessed 09/12/23 09/12/23 13:50 Const General: cooperative, healthy appearing and no acute distress Orientation/consciousness: oriented to person, oriented to place and oriented to time HENMT Head: Yes normal to inspection, Yes normocephalic and Yes atraumatic Mouth: Normal oral and palatal mucosa present and tongue normal Throat: Yes posterior oropharynx normal and Yes uvula midline Eyes General: appearance normal, both eyes and all related structures Neck Neck: Yes normal visual inspection, Yes full ROM and Yes no lymphadenopathy Thyroid: Thyroid normal Carotids: normal carotid upstroke Chest Chest palpation & inspection: normal inspection of the chest Resp Effort & Inspection: normal respiratory effort and able to speak in complete sentences Auscultation: clear to auscultation bilaterally Cardio Jugular venous distension: no JVD Palpation: normal PMI Rate: regular rate Rhythm: regular rhythm Heart sounds: S1 normal heart sound present and S2 normal heart sound present GI Inspection: Yes normal to inspection Palpation (GI): Soft to palpation and No hepatosplenomegaly present Auscultation: normal bowel sounds General: Yes no CVA tenderness Back/Spine/Pelvis Back: no CVA tenderness Skin General skin exam: no rashes or lesions noted Neuro General: oriented to person, oriented to place and oriented to time Extrem General: Yes normal to inspection and Yes full ROM Assessment and Plan Assessment & Plan (1) Physical exam: Code(s): Z00.00 - Encounter for general adult medical examination without abnormal findings Plan: labs Orders: Orders Lipid Panel Today E78.5 - Hyperlipidemia, unspecified Complete Blood Count Auto Diff Today D64.9 - Anemia, unspecified Comprehensive [place]. Panel Fast Today N28.9 - Disorder of kidney and ureter, unspecified Thyroid Stimulating Hormone Today E03.9 - Hypothyroidism, unspecified Referrals Gastroenterology Referral Z12.11 - Encounter for screening for malignant neoplasm of colon Coding Level of Care Code Est Pt Prev Care 40-64y(98045) Diagnoses Physical exam Z00.00 Additional Codes BRIAN-7 Assessment Billing - BRIAN-7 Assessment Tool: BRIAN-7 Assessment 02506 ([id number])
== END 2023-09-12 13:59 | disposition home or self-care (01) ==
PROVIDERS: PCP Internal Medicine; Visit Provider Internal Medicine
DX: Z00.00 Encounter for general adult medical examination without abnormal findings (principal)
CPT/HCPCS: 99396

== ENCOUNTER 2025-06-24 01:16 | Inpatient (IN) | payer MEDICARE, SELFPAY ==
--- OUTSIDE RECORDS SUMMARY | 2024-01-12 10:20 | XMS_ITS ---
Author Organization [facility] Address [address] [place] [address] Care Team Providers Care Newspaper Reporter Name Role Phone Massimo Briggs MD Primary Care Provider Dhaval Collazo [phone] REASON FOR VISIT Patient presents today for a colon screening Encounters Encounter Location Date Provider Diagnosis [facility] [address] [place] [address] 01/12/2024 Dhaval Davis Plan Of Treatment No Information Progress Notes * DINORA ARELLANODOB:1965 (60 yo M)Acc No.[id number]:01/12/2024 Progress Notes Patient: DINORA CONTEH Provider: Amandeep Davis MD :1965 A ge:58 Y S ex:Male Date:01/12/2024 Address:[address] [place] [address] [address] , [id number] Pcp:Massimo Briggs MD Subjective: * Chief Complaints: * 1 . Patient presents today for a colon screening. * Medical History: Objective: * Vitals: Assessment: Plan: * Treatment: * * The named appointment provid er may or may not be the originator of this progress note, and it is not deemed complete until electronically signed by the appointment provider. Sign off status: Pending * Provider: Amandeep Davis MD Date: 01/12/2024 Generated for Rebekah zhang/Giovanni/Kotaitting on: 06/24/2025 03:15 AM EDT
--- NOTE | 2025-06-24 | ECG_ITS ---
Test Reason : qtc check' Blood Pressure : */* mmHG Vent. Rate : 59 BPM Atrial Rate : 59 BPM P-R Int : 140 ms QRS Dur : 80 ms QT Int : 422 ms P-R-T Axes : 69 68 70 degrees QTcB Int : 417 ms Sinus bradycardia Otherwise normal ECG When compared with ECG of 29-Jul-2020 09:15, No significant change was found Referred By: Clotilde Allen Electronically Signed By: RODGER HAYNES MD
[2025-06-24 01:20] VITALS: BP 120/70; PULSE 70; O2SAT 99
[2025-06-24 02:04] VITALS: BP 121/67; PULSE 67; RESP 20; TEMP 36.2; O2SAT 97
[2025-06-24 02:06] VITALS: BMI 21.3
[2025-06-24 03:09] LABS: Hematocrit 34.1 % (42.0-52.0); Hemoglobin 11.8 g/dl (14.0-18.0); Imm Gran Abs Auto 0.02 X10*3/uL (0.00-0.03); Imm Gran Pct Auto 0.3 % (0.0-0.4); Lymphocytes Absolute Auto 1.9 X10*3/uL (1.2-4.9); MANUAL DIFF FLAG NO; Mean Corpuscular HGB Conc 34.6 g/dl (31.0-36.0); Mean Corpuscular Hemoglobin 30.0 pg (27.0-33.0); Mean Corpuscular Volume 86.8 fL (80.0-98.0); NRBC Abs Auto 0.000 X10*3/uL (0.0-0.012); NRBC Pct Auto 0.0 /100WBC (0.0-0.2); Platelet Count 227 X10*3/uL (160-400); Red Blood Count 3.93 X10*6/uL (4.60-5.80); White Blood Count 6.3 X10*3/uL (4.8-10.8)
--- OUTSIDE RECORDS SUMMARY | 2025-06-24 03:15 | XMS_ITS | Patient Health Record ---
Author Organization [facility] Address [address] [place] [address] Care Team Providers Care Optical Coating Technician Name Role Phone Massimo Briggs MD Primary Care Provider Dhaval Collazo Unavailable [phone] Reason For Referral No Information Plan Of Treatment No Information Insurance Providers Payer Name Payer Address Payer Phone Subscriber Number Group Number Insured Name Patient Relationship to Insured Coverage Start Date Coverage End Date MEDICARE OF [facility] [address] [facility] [place] [id number] DINORA ARELLANO Self - patient is the insured
[2025-06-24 03:21] LABS: Cannabinoid Screen Urine Not Detected (Not Detect)
[2025-06-24 03:24] LABS: Alanine Aminotransferase 18 U/L (0-40); Albumin Level 3.6 g/dL (3.5-5.0); Alkaline Phosphatase 116 U/L (39-117); Anion Gap 15 (12-20); Aspartate Amino Transferase 32 U/L (5-37); Blood Urea Nitrogen 14 mg/dL (9-16); Calcium 8.3 mg/dL (8.4-10.2); Carbon Dioxide 22 mmol/L (22-29); Chloride 109 mmol/L (96-108); Creatinine Clr Calc Pharmacy 105.0; Estimated Glomerular Filt Rate > 60; Potassium 3.4 mmol/L (3.3-5.1); Sodium 143 mmol/L (135-145); Total Protein 6.5 g/dL (6.5-8.0)
[2025-06-24 03:25] LABS: Acetaminophen LAB < 3 mcg/mL (<30); Salicylate < 5.0 mg/dL (15-30)
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
--- NOTE | 2025-06-24 08:25 | MHC.CARE ---
Pt meets the criteria for IPLOC and will be a bed search. Section 12a in chart. ED provider in agreement with disposition.
[2025-06-24 08:52] LABS: Appearance Urine Clear; Glucose Urine UA Negative (Negative); PH 6.0 (5.0-9.0); Specific Gravity - Urine <= 1.005 (1.005-1.025)
[2025-06-24 09:06] VITALS: BP 124/58; PULSE 62; RESP 17; TEMP 36.4; O2SAT 96
--- NOTE | 2025-06-24 09:09 | PC.NURSE ---
pt requesting to leave AMA at this time. patient notified/aware that he is unable to leave at this time and will be admitted/bed search d/t previous SI/HI statements. patient agreeable to plan. remains calm/cooperative. pending bed assignment. 1:1 sitter remains present. plan of care ongoing.
[2025-06-24 09:11] VITALS: PULSE 62
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
[2025-06-24 13:37] VITALS: BP 126/72; PULSE 80; RESP 16; TEMP 36.7; O2SAT 95; BMI 23.7
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
[2025-06-24 20:00] VITALS: BP 107/58; PULSE 55; RESP 18; TEMP 36.7; O2SAT 96
[2025-06-24 21:10] LABS: Glucose, Whole Blood 201 mg/dL (60-115)
[2025-06-25 07:59] LABS: Glucose, Whole Blood 188 mg/dL (60-115)
[2025-06-25 08:00] VITALS: BP 129/74; PULSE 51; RESP 16; TEMP 36.4; O2SAT 99
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
--- NOTE | 2025-06-25 16:00 | MHC.CLN ---
CONSULT CONSULT FOR REPORTED 22# WEIGHT LOSS X 2 MONTHS. VISITED WITH PATIENT ON UNIT. ATTRIBUTES WEIGHT LOSS TO DRUG USE. REPORTS THAT EATING VERY WELL HERE. DOES NOT WANT NUTRITIONAL SUPPLEMENT. NO ADDITIONAL NUTRITION INTERVENTIONS AT THIS TIME.
[2025-06-25 17:00] LABS: Glucose, Whole Blood 268 mg/dL (60-115)
[2025-06-25 17:01] LABS: Glucose, Whole Blood 162 mg/dL (60-115)
[2025-06-25 20:00] VITALS: BP 122/66; PULSE 57; RESP 16; TEMP 36.6; O2SAT 98
[2025-06-25 20:55] LABS: Glucose, Whole Blood 267 mg/dL (60-115)
[2025-06-26 07:00] VITALS: BMI 24.9
[2025-06-26 07:53] VITALS: BP 121/59; PULSE 50; RESP 16; TEMP 36.8; O2SAT 98
[2025-06-26 07:59] LABS: Glucose, Whole Blood 145 mg/dL (60-115)
--- NOTE | 2025-06-26 10:11 | MHC.RECOVRN ---
TW met with the patient in a conference room on M[facility] to discuss current alcohol and crack cocaine use and concerns related to increased risk of substance use and related problems.? On approach pt was laying in bed but agreeable to meeting with TW. He denies any withdrawal symptoms or pain and states his sleep and appetite, ?are just fine?. Pts speech is mumbled and difficult to follow at times, eye contact is poor and pt appears confused and answers questions inappropriately. Pt state he was brought to the hospital after going to the police station after a fight with his and was sent to the hospital due to blisters on his feet? When asked how much he is drinking, pt initially responds ?yes?. When prompted further he reports drinking 4-5 ?tall cans of beer when I have the money? and smoking approximately $50 worth of crack cocaine, ?every few days?. Pt reports he uses drugs and alcohol with his making it difficult to stop ?especially when she?s pushing me to get it?. 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 Pt states ?I just need to stop using?. When TW mentions NIRMALA or recovery coaching, pt states, ?On no, not right now. I have to save my apartment and take care of my mom first. I?ll be ok, I just need to stop?. TW explained how utilizing resources and the potential of NIRMALA to help pt to remain abstinent if that is his goal, to which pt continued to decline a need for. Pt did reports utilizing ?the shot? for AUD in the past but states he stopped using ?because my and I kept fighting?. Pt was unable or unwilling to elaborate on this statement. Discussed risk and reduction strategies including drinking below the recommended limit, not mixing substances and, importance of adequate nutrition and hydration.? Provided pt with written resources and education including options for NIRMALA, CCC, recovery coaching, START program, safer use strategies and area detox and CSS programs.? Pt declines intervention, NIRMALA, or outpatient appt for treatment related to AUD/ABBY at this time.? ? Pt was provided with TW?s contact information if questions or concerns arise and is available as needed for continued support and resources.
--- NOTE | 2025-06-26 10:39 | PC.NURSE ---
Pt was administered a MoCA on 06/26/25 and scored a 16/30 indicating moderate cognitive impairment. Provider was notified of score.
[2025-06-26 10:50] LABS: Hemoglobin A1C 184.1392 umol/L; Total Hemoglobin (HGBA1C) 3470.8694 umol/L
[2025-06-26 11:04] LABS: Alanine Aminotransferase 18 U/L (0-40); Albumin Level 3.8 g/dL (3.5-5.0); Alkaline Phosphatase 123 U/L (39-117); Anion Gap 12 (12-20); Aspartate Amino Transferase 35 U/L (5-37); Blood Urea Nitrogen 27 mg/dL (9-16); Calcium 9.1 mg/dL (8.4-10.2); Carbon Dioxide 28 mmol/L (22-29); Chloride 103 mmol/L (96-108); Cholesterol 194 mg/dL (<200); Creatinine Clr Calc Pharmacy 95.0; Estimated Glomerular Filt Rate > 60; HDL Cholesterol 54 mg/dL (>40); Potassium 4.9 mmol/L (3.3-5.1); Sodium 138 mmol/L (135-145); Total Protein 7.1 g/dL (6.5-8.0); Triglycerides 140 mg/dL (<150)
[2025-06-26 11:18] LABS: Free T4 (Free Thyroxine) 0.96 ng/dL (0.71-1.85); Thyroid Stimulating Hormone 1.04 uIU/mL (0.32-4.0)
[2025-06-26 12:01] LABS: Glucose, Whole Blood 181 mg/dL (60-115)
[2025-06-26 16:59] LABS: Glucose, Whole Blood 223 mg/dL (60-115)
--- NOTE | 2025-06-26 19:03 | P.PNPSI_ITS ---
Subjective Subjective Date of Service: 06/26/25 Reason For Visit: ETOH Subjective Notes: 3 Day Healthcare Proxy: No Guardianship: No Medical Problems Affecting Mental Status: No Interim History: Medical record and nursing notes reviewed; case discussed during rounds with team/nursing staff, and met with patient for supportive therapy/psychoeducation, as well as medication management. Patient slept well, has no medication scheduled. Let nursing staff checking his blood sugar but did not want any insulin coverage. Patient met with addiction team. Even the package related to information regarding recovery/substance use resources. Patient also have C[place]osa done today by the OT team score 16/30. Patient mostly resting in his bed, visible at times. Very limited, denies depression or anxiety. Denies any safety concerns. He said that he lives down the street and he can walk home tomorrow. Denies craving for alcohol or cocaine and stated that he will be clean not go back to do dose. Explained/and educated patient regarding negative effects on substance use included alcohol to his cognitive and mental health. Explained in general about what Catoosa score means. He may not processes well as he had some cognitive decline. ASHOK was DC'd. Mood score. No behavior issues. No safety concerns Attending Groups: Intermittent Review of Systems Acute medical concerns: No Medical Review of Systems: unchanged Review of Systems Review of Systems Constitutional: Denies fatigue and Denies fever(s) Cardiovascular: Denies chest pain and Denies dyspnea Respiratory: Denies dyspnea Gastrointestinal: Denies abdominal pain Psychiatric: denies suicidal ideation Endocrine: Denies fatigue Yes all other systems are reviewed and are negative Mental Status Exam Mental Status Exam Narrative: Patient is alert and oriented; older that stated age, behavior is cooperative, mild to moderate anxiety; patient is not in distress; dressed in casual attire with unkempt hair but adequate hygiene; mood is described as ok , affect congruent; eye contact appropriate; Speech is normal rate, volume and prosody and not pressured; no psychomotor agitation but mild retardation present; thought process is organized and goal directed; Thought content is WNL, pertinent to relevant topics and without any delusional content, paranoid ideation or grandiosity; denies any SI/SIB/HI. Denies AH and there is no evidence of perceptual disturbance. Patient's insight and judgment impaired and improving. Score 16/30 on Catoosa assessment done on 06/26/25. Diagnostics Vital Signs (24Hr): Vital Signs - 24 hr 06/25/25 20:00 06/26/25 07:53 Temperature 97.9 F 98.2 F Pulse Rate 57 50 Respiratory Rate 16 16 Blood Pressure 122/66 121/59 L Pulse Oximetry 98 98 Oxygen Delivery Method Room Air Room Air BMI result Body Mass Index 24.9 Labs 06/24/25 03:03 06/26/25 10:38 Labs: Laboratory Results - last 48 hr 06/24/25 06/25/25 06/25/25 21:07 07:52 11:54 Sodium Potassium Chloride Carbon Dioxide Anion Gap BUN Creatinine Estim Creat Clear Calc Estimated GFR POC Glucose 201 H 188 H 162 H Random Glucose Estimat Average Glucose Hemoglobin A1c % Calcium Total Bilirubin AST ALT Alkaline Phosphatase Total Protein Albumin Triglycerides Cholesterol LDL Cholesterol, Calc HDL Cholesterol TSH Free T4 06/25/25 06/25/25 06/26/25 16:56 20:48 07:55 Sodium Potassium Chloride Carbon Dioxide Anion Gap BUN Creatinine Estim Creat Clear Calc Estimated GFR POC Glucose 268 H 267 H 145 H Random Glucose Estimat Average Glucose Hemoglobin A1c % Calcium Total Bilirubin AST ALT Alkaline Phosphatase Total Protein Albumin Triglycerides Cholesterol LDL Cholesterol, Calc HDL Cholesterol TSH Free T4 06/26/25 06/26/25 06/26/25 10:33 10:38 11:57 Sodium 138 Potassium 4.9 D Chloride 103 Carbon Dioxide 28 Anion Gap 12 BUN 27 H Creatinine 0.81 Estim Creat Clear Calc 95.0 Estimated GFR > 60 POC Glucose 181 H Random Glucose 170 H Estimat Average Glucose 154 Hemoglobin A1c % 7.0 H Calcium 9.1 D Total Bilirubin 0.3 AST 35 ALT 18 Alkaline Phosphatase 123 H Total Protein 7.1 Albumin 3.8 Triglycerides 140 Cholesterol 194 LDL Cholesterol, Calc 112 H HDL Cholesterol 54 TSH 1.04 Free T4 0.96 06/26/25 16:50 Sodium Potassium Chloride Carbon Dioxide Anion Gap BUN Creatinine Estim Creat Clear Calc Estimated GFR POC Glucose 223 H Random Glucose Estimat Average Glucose Hemoglobin A1c % Calcium Total Bilirubin AST ALT Alkaline Phosphatase Total Protein Albumin Triglycerides Cholesterol LDL Cholesterol, Calc HDL Cholesterol TSH Free T4 Medications Medications Current Medications Acetaminophen (Acetaminophen 325 Mg Tablet) 650 mg PO Q6H PRN PRN Reason: Headache/Pain, Scale 1-10 Al Hydroxide/Mg Hydroxide (Magnesium Hydrox/Alum Hydrox 30 Ml Oral.Susp) 30 ml PO Q6H PRN PRN Reason: Heartburn/Nausea Dextrose (Dextrose 50 % 25 Gm/50 Ml Syringe) 25 gm IVPUSH Q15M PRN; Protocol PRN Reason: per Hypoglycemia Standing Ord. Glucose (Glucose Gel 15 Gm Gel..Gram.) 15 gm PO Q15M PRN; Protocol PRN Reason: per Hypoglycemia Standing Ord. Hydroxyzine HCl (Hydroxyzine Hcl 25 Mg Tablet) 25 mg PO Q6H PRN PRN Reason: mild anxiety Insulin Human Lispro (Insulin Lispro 100 Unit/Ml 3 Ml Vial) 0 unit SUBCUT QIDACHS [facility]; Protocol Last Admin: 06/26/25 18:59 Dose: Not Given Magnesium Hydroxide (Milk Of Magnesia 30 Ml Oral.Susp) 30 ml PO DAILY PRN PRN Reason: Constipation Nicotine (Nicotine 21 Mg Patch.Td24) 21 mg TRANSDERMA DAILY PRN PRN Reason: nicotine craving Nicotine Polacrilex (Nicotine Polacrilex 2 Mg Gum) 2 mg BUCCAL Q2H PRN PRN Reason: Nicotine Cravings Olanzapine (Olanzapine 5 Mg Tablet) 5 mg PO BID PRN PRN Reason: agitation Thiamine HCl (Thiamine Hcl 100 Mg Tablet) 100 mg PO DAILY [facility] Last Admin: 06/26/25 08:34 Dose: 100 mg Trazodone HCl (Trazodone Hcl 50 Mg Tablet) 50 mg PO BEDTIME MRX1 PRN PRN Reason: Insomnia Allergies Allergies Allergy/AdvReac Type Severity Reaction Status Date / Time metformin Allergy Unknown nausea, Verified 06/24/25 02:08 nausea and vomiting Assessment & Plan Assessment & Plan (1) Suicidal ideations: Status: Acute Code(s): R45.851 - Suicidal ideations (2) Homicidal ideations: Status: Acute Code(s): R45.850 - Homicidal ideations (3) Alcoholic intoxication: Status: Acute Code(s): F10.929 - Alcohol use, unspecified with intoxication, unspecified (4) Diabetes 1.5, managed as type 2: Status: Acute Code(s): E13.9 - Other specified diabetes mellitus without complications (5) Cocaine abuse: Status: Acute Code(s): F14.10 - Cocaine abuse, uncomplicated (6) Depressed affect: Status: Acute Code(s): R45.89 - Other symptoms and signs involving emotional state Plan HPI: Patient is a 60 years old Turkish speaking male who was BI BA to the [facility] ED after reporting to the police department he had money stolen. He reported that he fell and or lowered himself to the ground at that time. Patient was transferred to the ED and upon G as reported he has 4 tall beers a day as well as using crack cocaine. Reports SI with a plan to hang himself if you let me out I will kill people . Patient endorsed SI and stated do not let me walked out these doors. I want my life back. Put me in a program for 4 months. I want to hurt everyone . He does not taking any psychiatric medications. At baseline patient used alcohol and cocaine. 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 He resides with his in [place], housing is stable however he reports they do not have a healthy relationship and he does not want to return there. Formulation/clinical reasoning: Increase drug and alcohol use, having thoughts of hurting himself with plan,endorsed HI. No psychiatric treatment history, no outpatient therapist or psychiatrist services. No psychiatric medication. No psychiatric diagnoses. Given the above information, patient will be benefit in restrictive environment for his own safety and the safety of others, refer him to treatment program/cryolite recovery operator if is appropriate, and start the medication for depression symptoms if he is opening for treatment Hospital course: 06/24/25: Started diabetic protocol. Monitor for hypo and hyper glycemic. Consult placed for the addiction team. History of taking IM medical library assistant for alcohol use. Patient is not interested in taking medication at this time. He is on CIWA protocol with Ativan p.r.n. for withdrawal symptoms from alcohol. Vital signs pretty stable at this time. 06/25/25: Patient slept for 7 hours. No scheduled meds. Not interested in medications. Remain on CIWA protocol with Ativan PRN. Has not scored. VSs stable, Do not appear to be W/D during 1-1 assessment. Report that he has emergency situation that he needs to leave. Later on report that he needs to take care of his mom while his brother is away to work. He reported yesterday that his mother lives with his brother who is well taken care of by his brother. He wants to leave today so he can take care of her. Explain to patient that, d/t safety concerns and drug use, we will need to monitor for safety a couple more days. Pending result from Addiction team to see if any services can be provided to patient regarding alcohol and MARIAH use. Patient is receptive to the plan of possible discharge on Monday if there is no safety concerns. Denies SI/SIB/HI/AVH. Appear to be forgetful, did not know date/day/month/year on admission. He may benefit from Mocca assessment. Will touch base with OT. 06/26/25: Patient slept well, has no medication scheduled. Let nursing staff checking his blood sugar but did not want any insulin coverage. Patient met with addiction team. Even the package related to information regarding recovery/substance use resources. Patient also have C[place]osa done today by the OT team score 16/30 indicating moderate cognitive impairment. Patient was educated on things/activities/ and hobbies that he can do to improve or prevent the progressive, especially negative effects on brain functioning alcohol and drug use. Patient mostly resting in his bed, visible at times. Very limited, denies depression or anxiety. Denies any safety concerns. He said that he lives down the street and he can walk home tomorrow. Denies craving for alcohol or cocaine and stated that he will be clean not go back to do dose. Explained/and educated patient regarding negative effects on substance use included alcohol to his cognitive and mental health. Explained in general about what C[place]osa score means. He may not processes well as he had some cognitive decline. CIWA was DC'd. Mood score. No behavior issues. No safety concerns. Patient do not want to retract for further treatment. We will be discharged tomorrow home with walking clinic to [facility] or [facility] information given. Plan Patient on 15 minute checks for safety. Admitted to M3. CV 3 day notice 06/27/25: tentative to discharge home. Work with treatment team to do collateral. Refer to patient to philosophy specialist: Patient receive information regarding treatment programs/in resources for substance use. He is not interested in any treatment program at this current time. Work on his own. Utox +MARIAH, THC, BAL 150 on admission. Patient educated on: substance abuse and therapeutic strategies Informed Consent: understands Reason for continued inpatient stay Substantial Risk for: med/psych decompensation Time Spent With Patient Time: Total time managing care of this patient today ____ minutes.
[2025-06-26 20:00] VITALS: BP 132/61; PULSE 55; RESP 20; TEMP 36.8; O2SAT 99
[2025-06-26 20:41] LABS: Glucose, Whole Blood 245 mg/dL (60-115)
[2025-06-27 08:00] VITALS: BP 104/54; PULSE 49; RESP 16; TEMP 36.2; O2SAT 99
[2025-06-27 08:07] LABS: Glucose, Whole Blood 189 mg/dL (60-115)
--- NOTE | 2025-06-27 09:23 | P.DS_ITS ---
DS: Providers Provider Date of Service: 06/27/25 Date of admission: 06/24/25 10:30 Date of discharge: 06/27/25 Primary care physician: Unknown Physician Attending physician on admission: Marlena Peacock Consults: 06/24/25 12:32 Addiction Medicine Provider Routine Consulting Provider: Addiction Covering Reason for consultation: alcohol and crack cocaine use Has provider been notified: No Attending physician on discharge: Marlena Peacock DS: Diagnosis Discharge Diagnosis (1) Suicidal ideations: Status: Acute (2) Homicidal ideations: Status: Acute (3) Alcoholic intoxication: Status: Acute (4) Diabetes 1.5, managed as type 2: Status: Acute (5) Cocaine abuse: Status: Acute (6) Depressed affect: Status: Acute DS: Medications Discharge Medications Home Medications: Home Medications ?Medication ?Instructions ?Recorded ?Confirmed No Known Home Meds 06/24/25 06/24/25 Mental Status Exam Mental Status Exam Narrative: Patient presents well-groomed, casually dressed. Constricted Affect . Speech is clear and coherent. Thought process is linear and logical. Thought content is appropriate and relevant. Patient denies suicidal or homicidal ideation intent or plan. No overt psychotic symptoms elicited. Insight is fair. Judgment is fair. Data Data Completed and Pending Completed studies during hospitalization [Text1]: 06/24/25 06/24/25 06/25/25 03:03 21:07 07:52 WBC 6.3 RBC 3.93 L Hgb 11.8 L Hct 34.1 L MCV 86.8 MCH 30.0 MCHC 34.6 RDW 13.4 Plt Count 227 MPV 8.8 L Immature Gran % (Auto) 0.3 Neut % (Auto) 59.5 Lymph % (Auto) 29.3 Dickson % (Auto) 7.1 Eos % (Auto) 3.3 Baso % (Auto) 0.5 Lymph # (Auto) 1.9 Dickson # (Auto) 0.5 Eos # (Auto) 0.2 Baso # (Auto) 0.0 Abs Immat Gran (auto) 0.02 Absolute Neuts (auto) 3.8 Absolute Nucleated RBC 0.000 Nucleated RBC % (auto) 0.0 Sodium 143 Potassium 3.4 Chloride 109 H Carbon Dioxide 22 Anion Gap 15 BUN 14 Creatinine 0.68 Estim Creat Clear Calc 105.0 Estimated GFR > 60 POC Glucose 201 H 188 H Random Glucose 206 H Estimat Average Glucose Hemoglobin A1c % Calcium 8.3 L D Total Bilirubin 0.4 AST 32 ALT 18 Alkaline Phosphatase 116 Total Protein 6.5 Albumin 3.6 Triglycerides Cholesterol LDL Cholesterol, Calc HDL Cholesterol TSH Free T4 Urine Color Yellow Urine Appearance Clear Urine pH 6.0 Ur Specific Albertson <= 1.005 Urine Protein Negative Urine Glucose (UA) Negative Urine Ketones Negative Urine Blood Negative Urine Nitrite Negative Ur Leukocyte Esterase Negative Salicylates < 5.0 L Urine Opiates Screen Not Detected Ur Buprenorphine Scrn Not Detected Ur Oxycodone Screen Not Detected Urine Methadone Screen Not Detected Urine Fentanyl Screen Not Detected Acetaminophen < 3 Ur Barbiturates Screen Not Detected Ur Phencyclidine Scrn Not Detected Ur Amphetamines Screen Not Detected U Benzodiazepines Scrn Not Detected Urine Cocaine Screen POSITIVE H U Marijuana (THC) Screen Not Detected Ethyl Alcohol 150 06/25/25 06/25/25 06/25/25 11:54 16:56 20:48 WBC RBC Hgb Hct MCV MCH MCHC RDW Plt Count MPV Immature Gran % (Auto) Neut % (Auto) Lymph % (Auto) Dickson % (Auto) Eos % (Auto) Baso % (Auto) Lymph # (Auto) Dickson # (Auto) Eos # (Auto) Baso # (Auto) Abs Immat Gran (auto) Absolute Neuts (auto) Absolute Nucleated RBC Nucleated RBC % (auto) Sodium Potassium Chloride Carbon Dioxide Anion Gap BUN Creatinine Estim Creat Clear Calc Estimated GFR POC Glucose 162 H 268 H 267 H Random Glucose Estimat Average Glucose Hemoglobin A1c % Calcium Total Bilirubin AST ALT Alkaline Phosphatase Total Protein Albumin Triglycerides Cholesterol LDL Cholesterol, Calc HDL Cholesterol TSH Free T4 Urine Color Urine Appearance Urine pH Ur Specific [place] Urine Protein Urine Glucose (UA) Urine Ketones Urine Blood Urine Nitrite Ur Leukocyte Esterase Salicylates Urine Opiates Screen Ur Buprenorphine Scrn Ur Oxycodone Screen Urine Methadone Screen Urine Fentanyl Screen Acetaminophen Ur Barbiturates Screen Ur Phencyclidine Scrn Ur Amphetamines Screen U Benzodiazepines Scrn Urine Cocaine Screen U Marijuana (THC) Screen Ethyl Alcohol 06/26/25 06/26/25 06/26/25 07:55 10:33 10:38 WBC RBC Hgb Hct MCV MCH MCHC RDW Plt Count MPV Immature Gran % (Auto) Neut % (Auto) Lymph % (Auto) Dickson % (Auto) Eos % (Auto) Baso % (Auto) Lymph # (Auto) Dickson # (Auto) Eos # (Auto) Baso # (Auto) Abs Immat Gran (auto) Absolute Neuts (auto) Absolute Nucleated RBC Nucleated RBC % (auto) Sodium 138 Potassium 4.9 D Chloride 103 Carbon Dioxide 28 Anion Gap 12 BUN 27 H Creatinine 0.81 Estim Creat Clear Calc 95.0 Estimated GFR > 60 POC Glucose 145 H Random Glucose 170 H Estimat Average Glucose 154 Hemoglobin A1c % 7.0 H Calcium 9.1 D Total Bilirubin 0.3 AST 35 ALT 18 Alkaline Phosphatase 123 H Total Protein 7.1 Albumin 3.8 Triglycerides 140 Cholesterol 194 LDL Cholesterol, Calc 112 H HDL Cholesterol 54 TSH 1.04 Free T4 0.96 Urine Color Urine Appearance Urine pH Ur Specific Alber[place] Urine Protein Urine Glucose (UA) Urine Ketones Urine Blood Urine Nitrite Ur Leukocyte Esterase Salicylates Urine Opiates Screen Ur Buprenorphine Scrn Ur Oxycodone Screen Urine Methadone Screen Urine Fentanyl Screen Acetaminophen Ur Barbiturates Screen Ur Phencyclidine Scrn Ur Amphetamines Screen U Benzodiazepines Scrn Urine Cocaine Screen U Marijuana (THC) Screen Ethyl Alcohol 06/26/25 06/26/25 06/26/25 11:57 16:50 20:36 WBC RBC Hgb Hct MCV MCH MCHC RDW Plt Count MPV Immature Gran % (Auto) Neut % (Auto) Lymph % (Auto) Dickson % (Auto) Eos % (Auto) Baso % (Auto) Lymph # (Auto) Dickson # (Auto) Eos # (Auto) Baso # (Auto) Abs Immat Gran (auto) Absolute Neuts (auto) Absolute Nucleated RBC Nucleated RBC % (auto) Sodium Potassium Chloride Carbon Dioxide Anion Gap BUN Creatinine Estim Creat Clear Calc Estimated GFR POC Glucose 181 H 223 H 245 H Random Glucose Estimat Average Glucose Hemoglobin A1c % Calcium Total Bilirubin AST ALT Alkaline Phosphatase Total Protein Albumin Triglycerides Cholesterol LDL Cholesterol, Calc HDL Cholesterol TSH Free T4 Urine Color Urine Appearance Urine pH Ur Specific [place] Urine Protein Urine Glucose (UA) Urine Ketones Urine Blood Urine Nitrite Ur Leukocyte Esterase Salicylates Urine Opiates Screen Ur Buprenorphine Scrn Ur Oxycodone Screen Urine Methadone Screen Urine Fentanyl Screen Acetaminophen Ur Barbiturates Screen Ur Phencyclidine Scrn Ur Amphetamines Screen U Benzodiazepines Scrn Urine Cocaine Screen U Marijuana (THC) Screen Ethyl Alcohol 06/27/25 07:59 WBC RBC Hgb Hct MCV MCH MCHC RDW Plt Count MPV Immature Gran % (Auto) Neut % (Auto) Lymph % (Auto) Dickson % (Auto) Eos % (Auto) Baso % (Auto) Lymph # (Auto) Dickson # (Auto) Eos # (Auto) Baso # (Auto) Abs Immat Gran (auto) Absolute Neuts (auto) Absolute Nucleated RBC Nucleated RBC % (auto) Sodium Potassium Chloride Carbon Dioxide Anion Gap BUN Creatinine Estim Creat Clear Calc Estimated GFR POC Glucose 189 H Random Glucose Estimat Average Glucose Hemoglobin A1c % Calcium Total Bilirubin AST ALT Alkaline Phosphatase Total Protein Albumin Triglycerides Cholesterol LDL Cholesterol, Calc HDL Cholesterol TSH Free T4 Urine Color Urine Appearance Urine pH Ur Specific [place] Urine Protein Urine Glucose (UA) Urine Ketones Urine Blood Urine Nitrite Ur Leukocyte Esterase Salicylates Urine Opiates Screen Ur Buprenorphine Scrn Ur Oxycodone Screen Urine Methadone Screen Urine Fentanyl Screen Acetaminophen Ur Barbiturates Screen Ur Phencyclidine Scrn Ur Amphetamines Screen U Benzodiazepines Scrn Urine Cocaine Screen U Marijuana (THC) Screen Ethyl Alcohol DS: Summary Hospital Course Hospital Course: HPI: Patient is a 60 years old Mosotho speaking male who [place] [facility] [place] reporting to [place] police department he had money stolen. He reported that he fell and or lowered himself to the ground at that time. Patient was transferred to the ED and upon G as reported he has 4 tall beers a day as well as using crack cocaine. Reports SI with a plan to hang himself if you let me out I will kill people . Patient endorsed SI and stated do not let me walked out these doors. I want my life back. Put me in a program for 4 months. I want to hurt everyone . He does not taking any psychiatric medications. At baseline patient used alcohol and cocaine. 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 He resides with his in [place], housing is stable however he reports they do not have a healthy relationship and he does not want to return there. Formulation/clinical reasoning: Increase drug and alcohol use, having thoughts of hurting himself with plan,endorsed HI. No psychiatric treatment history, no outpatient therapist or psychiatrist services. No psychiatric medication. No psychiatric diagnoses. 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 Monitor for hypo and hyper glycemic. Consult placed for the addiction team. 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 Patient is not interested in taking medication at this time. He is on CIWA protocol with Ativan p.r.n. for withdrawal symptoms from alcohol. Vital signs pretty stable at this time. 06/25/25: Patient slept for 7 hours. No scheduled meds. Not interested in medications. Remain on CIWA protocol with Ativan PRN. Has not scored. VSs stable, Do not appear to be W/D during 1-1 assessment. Report that he has emergency situation that he needs to leave. Later on report that he needs to t paulette care of his mom while his brother is away to work. He reported yesterday that his mother lives with his brother who is well taken care of by his brother. He wants to leave today so he can take care of her. Explain to patient that, d/t safety concerns and drug use, we will need to monitor for safety a couple more days. Pending result from Addiction team to see if any services can be provided to patient regarding alcohol and MARIAH use. Patient is receptive to the plan of possible discharge on Monday if there is no safety concerns. Denies SI/SIB/HI/AVH. Appear to be forgetful, did not know date/day/month/year on admission. He may benefit from [facility] assessment. Will touch base with OT. 06/26/25: Patient slept well, has no medication scheduled. Let nursing staff checking his blood sugar but did not want any insulin coverage. Patient met with addiction team. Even the package related to information regarding recovery/substance use resources. Patient also have Whiteside done today by the OT team score 16/30 indicating moderate cognitive impairment. Patient was educated on things/activities/ and hobbies that he can do to improve or prevent the progressive, especially negative effects on brain functioning alcohol and drug use. Patient mostly resting in his bed, visible at times. Very limited, denies depression or anxiety. Denies any safety concerns. He said that he lives down the street and he can walk home tomorrow. Denies craving for alcohol or cocaine and stated that he will be clean not go back to do dose. Explained/and educated patient regarding negative effects on substance use included alcohol to his cognitive and mental health. Explained in general about what Whiteside score means. He may not processes well as he had some cognitive decline. ASHOK was DC'd. Mood score. No behavior issues. No safety concerns. Patient do not want to retract for further treatment. We will be discharged tomorrow home with walking clinic to [facility] or [facility] information given. 06/27/25: patient is safe to discharge home. Patient will walk home as he lives down on [place] [address] a [place] blocks away from the hospital. No medication sent as patient has not interested in taking meds. Advised to seek out to PCP as annual check up as he has not seen by PCP for a couple of years. Patient does not want to retract 3-day or stay further for treatment. Patient is not imminent risk to self or others and not meet criteria for court commitment. Therefore, will discharge patient home with family. Denies craving for alcohol or MARIAH. Time spent discussing smoking cessation with patient: 3 to 10 minutes Status at Discharge Cognitive/behavioral status at discharge: CONDITION ON DISCHARGE: CURRENT STATUS IT RELATES TO ADMISSION CRITERIA: Stable, improved. Improvements in depression, anxiety. No suicidal ideation/ homicidal thoughts.. Improvements in sleep, energy, and appetite. and no h allucination or paranoia/delusional thought. Mild to moderate cognitive decline at baseline. Functional status at discharge: independent ambulation Overall status at discharge: patient is back to baseline Time Spent with Patient Time attestation: Total time managing care of this patient today ____ minutes. Time spent: Greater than 30 minutes Discharge Plan Discharge Anticipated Discharge Date/Time: 06/27/25 09:20 Patient Disposition: Home, Self-Care Discharge Diagnosis: MARIAH use disorder, alcohol use Disorder. Depressive mood. Diabetes. Referrals: Therapy & Psychiatry [Other] - 1 Week Referral Note: *You can present to the clinic above, Monday through Monday during the hours of 8am and 8pm, in order to obtain outpatient mental health providers. Therapy & Psychiatry [Other] - 1 Week Referral Note: *You can present to the clinic above, Monday through Monday during the hours of 10am and 12pm, in order to obtain outpatient mental health providers. [facility] [Provider Group] - 1 Week Referral Note: 06-25-25 [facility] was added to patients chart. Please call [phone] to schedule a follow up appt within 7-10 days of discharge. No release or PCP on file. Discharge Medications: No Action No Known Home Meds Discharge Orders: Discharge Order (Routine); Ordered 06/27/25 Ordered By: Marlena Peacock Diet: Regular diet Activity on Discharge: No Restrictions Stand Alone Forms: Patient Portal Discharge page, Community Support Print Language: Mosotho Care Plan Goals: Maintain mood and safe behaviors Take medications as prescribed/ or when open for medication to help with alcohol/MARIAH craving. Continue to pursue sobriety Practice coping skills Continue with outpatient providers and reach out to them as needed Health Concerns: Mood stability and behaviors Sobriety Plan of Treatment: Follow up with your PCP, psychiatric provider and other outpatient providers regarding above concerns Take medications as prescribed/ or talk OP provider if he change his mind and would like to start on medication for alcohol/MARIAH craving Assessment: Assessment: Risk assessment at time of discharge: Patient was interviewed prior to discharge and found to be fully oriented and without any SI or HI. Patient has improved insight and judgment and wants to continue treatment. Patient is not in imminent risk of harm to self or others and has a safety plan that includes presenting to the closest ER or calling 911 if feeling unsafe. Patient has been observed closely by nursing and unit staff throughout admission; patient has not engaged in any behaviors that suggest dangerousness to self or others and has demonstrated appropriate behaviors and impulse control Substance abuse treatment and risks discussed with patient who at this time patient declines MAT or help with outpt treatment options including programs; instead patient is choosing to work out sobriety on own Discharge Date/Time: 06/27/25 10:03
== END 2025-06-27 10:03 | disposition home or self-care (01) | DRG 881 ==
LOC: HO.ED 09:17 → HO.PADLT16 10:58
PROVIDERS: Admitting Provider Nurse Practitioner Psychiatric/Mental Health; Emergency Provider Emergency Medicine; Visit Provider Nurse Practitioner Psychiatric/Mental Health
DX: F32.A Depression, unspecified (principal); R45.851 Suicidal ideations; Y90.6 Blood alcohol level of 120-199 mg/100 ml; R45.850 Homicidal ideations; F17.210 Nicotine dependence, cigarettes, uncomplicated; Z71.6 Tobacco abuse counseling; E13.9 Other specified diabetes mellitus without complications; F14.10 Cocaine abuse, uncomplicated; F10.929 Alcohol use, unspecified with intoxication, unspecified
CPT/HCPCS: 36415; 80053; 80061; 80143; 80179; 80307; 81003; 82947; 83036; 84439; 84443; 85025; 93005; 99285; S9485

== ENCOUNTER → 2025-06-24 09:08 | Outpatient (BNV) | payer MEDICARE, MEDICAID, SELFPAY | PROVIDERS: Admitting Provider Nurse Practitioner Psychiatric/Mental Health; Emergency Provider Emergency Medicine; Visit Provider Internal Medicine Cardiovascular Disease | DX: R00.1 Bradycardia, unspecified (principal) | CPT/HCPCS: 93010 ==

== ENCOUNTER → 2025-06-24 10:30 | Outpatient (BNV) | payer MEDICARE, SELFPAY | PROVIDERS: Admitting Provider Nurse Practitioner Psychiatric/Mental Health; Emergency Provider Emergency Medicine; Visit Provider Nurse Practitioner Psychiatric/Mental Health | DX: F10.90 Alcohol use, unspecified, uncomplicated (principal); R45.851 Suicidal ideations; R45.850 Homicidal ideations; E13.9 Other specified diabetes mellitus without complications; F14.10 Cocaine abuse, uncomplicated | CPT/HCPCS: 90792; 99232 ==